=== PATIENT | male | born 1990 | race American Indian/Alaskan Native ===

== ENCOUNTER 2017-07-10 18:03 | Emergency (ER) | payer OTHER ==
[2017-07-10 18:11] VITALS: BP 125/71
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
== END 2017-07-10 19:01 | disposition home or self-care (01) ==
LOC: ED 18:03
DX: M79.604 Pain in right leg (principal); M79.605 Pain in left leg; M54.5 Low back pain; M25.519 Pain in unspecified shoulder; V87.7XXA Person injured in collision between other specified motor vehicles (traffic), initial encounter; Y93.89 Activity, other specified; Y99.8 Other external cause status; Y92.410 Unspecified street and highway as the place of occurrence of the external cause
CPT/HCPCS: 99282

== ENCOUNTER 2021-09-28 16:20 | Emergency (ER) | payer OTHER ==
[2021-09-28 17:26] VITALS: BP 133/41
[2021-09-28] MEDS ORDERED: CYCLOBENZAPRINE 10 MG TAB PO ONE (17:27)
[2021-09-28] MEDS ORDERED: KETOROLAC 10 MG TAB PO ONE (17:27)
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
== END 2021-09-28 18:23 | disposition home or self-care (01) ==
LOC: ED 16:20
DX: M54.9 Dorsalgia, unspecified (principal); M54.2 Cervicalgia; V89.2XXA Person injured in unspecified motor-vehicle accident, traffic, initial encounter; Y93.89 Activity, other specified; Y92.89 Other specified places as the place of occurrence of the external cause; Y99.8 Other external cause status
CPT/HCPCS: 99282